=== PATIENT | female | born 1975 | race Caucasian/White ===

== ENCOUNTER 2016-07-04 14:13 | Inpatient (IN) | payer BC ==
[~2016-07-04] VITALS: Ht 157.5 cm; Wt 88.0 kg
[2016-07-04 08:00] VITALS: BP 134/79
--- NOTE | 2016-07-04 14:15 | NUR ---
BIB RA FROM CLINIC FOR CHEST PAIN, PATIENT HAS CHEST PAIN FOR A FEW DAYS, GETTING WORSE, SHE STATES IT IS RADIATING TO LEFT ARM, PATIENT IS VERBALLY RESPONSIVE, A/O X4, HAS CARDIAC HISTORY, PLACED ON MONITOR, EKG COMPLETED, MD AT BEDSIDE UPON ARRIVAL, WILL CONTINUE TO MONITOR CLOSELY.
[2016-07-04] MEDS ORDERED: ASPIRIN 325 MG TABLET ONE (14:41)
[2016-07-04] MEDS ORDERED: NITROGLYCERIN 0.4 MG/TAB BOTTLE ONE (14:44)
[2016-07-04] MEDS ORDERED: ONDANSETRON HCL/PF 4 MG/2 ML VIAL ONE (14:45)
[2016-07-04] MEDS ORDERED: IV NS 0.9% 1,000 ML ONE (14:53)
[2016-07-04] MEDS ORDERED: IV SET PRIMARY 1 EA INFUS.SET MC ONE (14:53)
[2016-07-04 14:55] LABS: BASOPHILS # (AUTO) 0.1 /CMM (0.0-0.2); BASOPHILS % (AUTO) 0.8 % (0.0-2.0); EOSINOPHILS # (AUTO) 0.1 /CMM (0.0-0.7); EOSINOPHILS % (AUTO) 1.3 % (0.0-6.0); HEMATOCRIT 45 % (33-45); HEMOGLOBIN 14.6 g/dL (11.5-14.8); LYMPHOCYTES # (AUTO) 1.9 /CMM (0.8-4.8); LYMPHOCYTES % (AUTO) 22.4 % (20.0-44.0); MEAN CORPUSCULAR HEMOGLOBIN 30 PG (26.0-33.0); MEAN CORPUSCULAR HGB CONC 32 g/dl (31.0-36.0); MEAN CORPUSCULAR VOLUME 93 fL (82-100); MONOCYTES # (AUTO) 0.4 /CMM (0.1-1.30); MONOCYTES % (AUTO) 4.9 % (2.0-12.0); NEUTROPHILS % (AUTO) 70.6 % (43.0-81.0); PLATELET COUNT (AUTO) 229 /CMM (150-450); RDW COEFFICIENT OF VARIATION 11.7 (11.5-15.0); WHITE BLOOD COUNT (AUTO) 8.5 K/uL (4.3-11.0)
[2016-07-04] MEDS ORDERED: ONDANSETRON HCL/PF 4 MG/2 ML VIAL IV ONE (15:00)
[2016-07-04] MEDS ORDERED: IV NS 0.9% 1,000 ML BAG IV ONE (15:00)
[2016-07-04] MEDS ORDERED: ASPIRIN 325 MG TABLET PO ONE (15:00)
[2016-07-04 15:06] LABS: CARBON DIOXIDE 28 mmol/L (21-32); CHLORIDE 106 mmol/L (98-107); CREATININE 1.1 mg/dL (0.6-1.3); GLUCOSE 84 mg/dL (74-106); POTASSIUM 4.1 mmol/L (3.5-5.1); SODIUM SERUM 141 mmol/L (136-145); UREA NITROGEN, BLOOD 19 mg/dL (7-18)
[2016-07-04 15:09] LABS: INR 1.05 (0.87-1.13); PROTHROMBIN TIME 10.9 SECS (9.5-12.7)
[2016-07-04 15:15] LABS: TROPONIN I < 0.017 ng/mL (0.00-0.056)
[2016-07-04 15:17] LABS: APPEARANCE,URINE Cloudy (CLEAR); BLOOD, URINE Negative Ery/uL (NEGATIVE); COLOR,URINE Yellow (YELLOW); KETONES,URINE 40 (NEGATIVE); LEUKOCYTE ESTERASE ,URINE Trace (NEGATIVE); NITRITE, URINE Negative (NEGATIVE); PROTEIN,URINE 30 mg/dl (NEGATIVE); UGLUCOSE Negative (NEGATIVE)
[2016-07-04 15:19] LABS: BILIRUBIN,URINE SMALL (NEGATIVE)
[2016-07-04] MEDS ORDERED: LEVO1CAP3 PO (15:23)
[2016-07-04] MEDS ORDERED: ONDA8TAB9 PO (15:23)
[2016-07-04] MEDS ORDERED: IPRA3AMP IH (15:23)
[2016-07-04] MEDS ORDERED: FERR-58 PO (15:23)
[2016-07-04] MEDS ORDERED: SUCR1TAB26 PO (15:23)
[2016-07-04] MEDS ORDERED: DILT60CA PO (15:23)
[2016-07-04] MEDS ORDERED: PANT40TA2 PO (15:23)
[2016-07-04] MEDS ORDERED: SIME80TA15 PO (15:23)
[2016-07-04] MEDS ORDERED: FLUT1DIS5 IH (15:23)
[2016-07-04] MEDS ORDERED: ACID1TAB12 PO (15:23)
[2016-07-04] MEDS ORDERED: BUPR-51 PO (15:23)
[2016-07-04] MEDS ORDERED: ALBU8.5H2 IH (15:23)
[2016-07-04] MEDS ORDERED: DICY10CA59 PO (15:23)
[2016-07-04] MEDS ORDERED: POLY17PO4 PO (15:24)
--- NOTE | 2016-07-04 15:25 | NUR ---
CALLED NURSING SUP. FOR TELE BED
[2016-07-04 15:31] LABS: RBC,URINE 0-2 /HPF (0-2)
[2016-07-04 15:32] LABS: BACTERIA,URINE 1+ /HPF (None Seen); SQUAMOUS EPITHELIAL CELL,UR Many /HPF (None Seen); WBC,URINE 0-3 /HPF (0-3)
[2016-07-04 16:11] LABS: MAGNESIUM 2.2 mg/dL (1.8-2.4); PHOSPHORUS 3.2 mg/dL (2.5-4.9)
[2016-07-04] MEDS ORDERED: MORPHINE SULFATE INJ 4 MG/ML DISP.SYRIN ONE (16:16)
--- NOTE | 2016-07-04 16:16 | NUR ---
REPORT GIVEN TO ANNAMARIE HOUSTON
[2016-07-04] MEDS ORDERED: MORPHINE SULFATE INJ 2 MG/ML DISP.SYRIN IV ONE (16:30)
[2016-07-04] MEDS ORDERED: NITROGLYCERIN 0.4 MG/TAB BOTTLE SL ONE (16:30)
[2016-07-04] MEDS ORDERED: IV NS 0.9% 250 ML IV ONE (16:44)
[2016-07-04] MEDS ORDERED: IOHEXOL-350 100 ML VIAL IV ONE (16:44)
[2016-07-04] MEDS ORDERED: diphenhydrAMINE HCL 50 MG/ML VIAL ONE (16:54)
[2016-07-04] MEDS ORDERED: methylPREDNISolone SOD SUCC 125 MG/2ML VIAL ONE (16:54)
[2016-07-04] MEDS ORDERED: diphenhydrAMINE HCL 50 MG/ML VIAL IV ONE (17:00)
[2016-07-04] MEDS ORDERED: methylPREDNISolone SOD SUCC 125 MG/2ML VIAL IV ONE (17:00)
--- NOTE | 2016-07-04 17:35 | NUR ---
PATIENT WAS TAKEN TO RADIOLOGY FOR CTA, DR. JOY WAS AWARE OF PATIENT'S ALLERGIES TO CONTRAST, PATIENT WAS GIVEN MEDICATION PROPHILACTICALLY, PATIENT AGREED TO PROCEDURE KNOWING RISKS
--- NOTE | 2016-07-04 17:36 | NUR ---
PT. ALLERGY TO CONTRAST (IODINE), DR. JOY IS AWARE, PRE MEDICATE HER WITH BENADRYL AROUND 1700. ABOUT TO DO A CTA DISSECTION (1729).
--- NOTE | 2016-07-04 18:41 | NUR ---
REPORT GIVEN BY TENA HOUSTON TO THE FLOOR - 112 BED ONE TO THE FLOOR NURSE
--- NOTE | 2016-07-04 18:53 | NUR ---
TEL RN ,patient received to room 111-2 awake and alert oriented x4 resp unlabored no sob noted Dx of chest pain troponin<0.017 telemetry shows SR plan of care and safety discussed and verbalized understanding patient encouraged use of call light to make all needs known will continue to assess and evaluate will endorsed to incoming nurse re; above call light with in reach
--- NOTE | 2016-07-04 19:30 | NUR ---
RN NOTE RECEIVED PT IN NO ACUTE DISTRESS IN BED. PT IS A/O X 4 AND ABLE TO MAKE NEEDS KNOWN. PT IS ON RA AND TOLERATING WELL. PT C/O SOB AND CHEST PAIN. PT PLACED ON 2LPM O2 VIA NC AND TOLERATING WELL WITH O2 SAT @ 100%. AWAITING ADMISSION ORDERS FROM ADMITTING MD. PT HAS LAC 20G THAT IS CLEAN DRY INTACT AND PATENT WITH SALINE LOCK. BED IN LOW LOCK POSITION WITH RIALS UP X 2. CALL LIGHT WITHIN REACH AND ALL SAFETY MEASURES ENSURED AND CARRIED OUT. WILL CONTINUE TO MONITOR PT.
[2016-07-04 20:00] VITALS: BP 134/79
[2016-07-04] MEDS ORDERED: ZOLPIDEM TARTRATE 5 MG TABLET PO PRN (21:00)
[2016-07-04] MEDS ORDERED: MAG HYDROX/AL HYDROX/SIMETH 30 ML UDC PO PRN (21:00)
[2016-07-04] MEDS ORDERED: HYDROCODONE/APAP 5/325MG 1 EACH TABLET PO PRN (21:00)
[2016-07-04] MEDS ORDERED: MAGNESIUM HYDROXIDE 30 ML UDC PO PRN (21:00)
[2016-07-04] MEDS: ACETAMINOPHEN 325 MG TABLET PO PRN (21:24)
[2016-07-04] MEDS: ONDANSETRON HCL/PF 4 MG/2 ML VIAL IVP PRN (21:24)
[2016-07-05] VITALS: BP 100/67
[2016-07-05] MEDS ORDERED: ALBUTEROL SULFATE 8 GM HFA.AER.AD IH PRN (02:30)
[2016-07-05] MEDS ORDERED: ENOXAPARIN SODIUM 40 MG/0.4 ML DISP.SYRIN SQ SCH (02:30)
[2016-07-05] MEDS ORDERED: DICYCLOMINE HCL 10 MG CAPSULE PO PRN (02:30)
[2016-07-05] MEDS ORDERED: ENOXAPARIN SODIUM 40 MG/0.4 ML DISP.SYRIN SQ ONE (03:13)
[2016-07-05] MEDS ORDERED: MORPHINE SULFATE INJ 2 MG/ML DISP.SYRIN ONE (03:13)
[2016-07-05 03:16] LABS: HEMATOCRIT 40 % (33-45); HEMOGLOBIN 13.8 g/dL (11.5-14.8); LYMPHOCYTES # (AUTO) 0.9 /CMM (0.8-4.8); LYMPHOCYTES % (AUTO) 12.8 % (20.0-44.0); MEAN CORPUSCULAR HEMOGLOBIN 32 PG (26.0-33.0); MEAN CORPUSCULAR HGB CONC 34 g/dl (31.0-36.0); MEAN CORPUSCULAR VOLUME 93 fL (82-100); MONOCYTES # (AUTO) 0.1 /CMM (0.1-1.30); MONOCYTES % (AUTO) 0.8 % (2.0-12.0); NEUTROPHILS # (AUTO) 5.8 /CMM (1.8-8.9); NEUTROPHILS % (AUTO) 86.4 % (43.0-81.0); PLATELET COUNT (AUTO) 193 /CMM (150-450); RDW COEFFICIENT OF VARIATION 12.7 (11.5-15.0); RED BLOOD CELL COUNT(AUTO) 4.32 MIL/uL (4.0-5.2); WHITE BLOOD COUNT (AUTO) 6.7 K/uL (4.3-11.0)
[2016-07-05] MEDS: MORPHINE SULFATE INJ 2 MG/ML DISP.SYRIN IV PRN ×4 (03:21→22:34)
[2016-07-05] MEDS: ONDANSETRON HCL/PF 4 MG/2 ML VIAL IVP PRN ×3 (03:22→18:41)
[2016-07-05 03:31] LABS: CALCIUM, SERUM 8.3 mg/dL (8.5-10.1); CREATININE 0.9 mg/dL (0.6-1.3); MAGNESIUM 2.3 mg/dL (1.8-2.4); POTASSIUM 4.4 mmol/L (3.5-5.1)
[2016-07-05 04:00] VITALS: BP 95/61
--- NOTE | 2016-07-05 06:35 | NUR ---
RN CLOSING NOTE PT REMAINS IN NO ACUTE DISTRESS IN BED. PT DID NOT HAVE ANY SIGNIFICANT CHANGE IN CONDITION DURING SHIFT. ALL NEEDS MET ALL ORDERS CARRIED OUT. WILL ENDORSE CARE TO AM RN FOR CONTINUITY OF CARE.
[2016-07-05] MEDS ORDERED: PANTOPRAZOLE 40 MG TABLET.DR PO SCH ×2 (07:30)
[2016-07-05 08:00] VITALS: BP 107/71
[2016-07-05] MEDS ORDERED: LIDOCAINE VISCOUS 2% UD 15 ML UDC MM PRN (08:00)
[2016-07-05] MEDS ORDERED: MAG HYDROX/AL HYDROX/SIMETH 30 ML UDC PO PRN (08:00)
[2016-07-05] MEDS ORDERED: SUCRALFATE 1 G TABLET PO SCH (09:00)
[2016-07-05] MEDS ORDERED: [UNRECOGNIZED DRUG - OTHER] PO SCH (09:00)
[2016-07-05] MEDS ORDERED: ASPIRIN EC 325 MG TABLET.DR PO SCH (09:00)
[2016-07-05] MEDS ORDERED: LEVOMEFOLATE PO SCH (09:00)
[2016-07-05] MEDS: BOOST PLUS FOOD-VANILLA 237 ML BOX PO SCH ×4 (09:00→16:02)
[2016-07-05] MEDS ORDERED: ALGAL OIL PO SCH (09:00)
[2016-07-05] MEDS: POLYETHYLENE GLYCOL 3350 17 GM POWD.PACK PO SCH (11:04)
[2016-07-05] MEDS: FLUTICASONE/SALMETEROL 1 DISK IH SCH ×2 (11:05→16:02)
[2016-07-05] MEDS: BUPROPION XL 150 MG TAB.ER.24 PO SCH (11:05)
[2016-07-05] MEDS: FERROUS SULFATE (325 MG) 325 MG/TAB TABLET PO SCH ×2 (11:05→16:02)
[2016-07-05] MEDS: SIMETHICONE 80 MG TAB.CHEW PO SCH ×3 (11:06→16:02)
[2016-07-05] MEDS: ACIDOPHILUS/BULGARICUS 1 EACH TAB.CHEW PO SCH (11:06)
[2016-07-05] MEDS: DILTIAZEM HCL 30 MG TABLET PO SCH ×2 (11:08→21:19)
--- NOTE | 2016-07-05 11:21 | NUR ---
POST OP AND eMAR NOTE PAST DUE MEDICATION UNKNOWN ADMINISTRATION CLEARED FOR UP TO DATE SCHEDULING. BOOST GIVEN AT THIS TIME FOR AM ADMIN. ALL MEDS GIVEN LATE BECAUSE PATIENT WAS IN OR. PATIENT IS STABLE AT TIME OF RETURN VSS, LOC WNL, 07/20 PAIN
[2016-07-05 12:00] VITALS: BP 111/69
--- NOTE | 2016-07-05 12:35 | NUR ---
10/10 CHEST PAIN, ADMIN MORPHINE AND ZOFRAN FOR S/E OF NAUSEA WITH NARCOTICS
[2016-07-05] MEDS ORDERED: IPRATROPIUM NEB FS 0.5 MG/2.5 ML AMPUL.NEB NEB PRN (13:30)
[2016-07-05] MEDS ORDERED: ALBUTEROL FS 2.5 MG/3 ML VIAL.NEB NEB PRN (13:30)
--- NOTE | 2016-07-05 14:00 | NUR ---
non admin simethicone because too close to last admin time
[2016-07-05 16:00] VITALS: BP 127/56
[2016-07-05] MEDS: SUCRALFATE 1 G TABLET PO SCH (16:02)
[2016-07-05] MEDS ORDERED: LEVOTHYROXINE SODIUM 175 MCG TABLET PO SCH (16:30)
--- NOTE | 2016-07-05 19:12 | NUR ---
end of shift left patient in stable condition, breathing and LOC wnl. after morphine and zofran administered symptoms relieved. patient consuming minimal amount of PO intake as she is having upper GI pain. consuming boost supplement. no emesis. LAC IV remains patent, no complications at insertion site. education provided regarding symptoms, diagnosis and management, patient verbalizes understanding is is active/ compliant with care plan. patient reports no BM in 9 days and stated this is a common occurrence, informed VACCINE SPECIALIST Moe and endorsed to night nurse. receiving scheduled miralax. denied additional laxatives this shift. call light reach
--- NOTE | 2016-07-05 19:15 | NUR ---
RN INITIAL NOTES PATIENT IN BED, RESTING COMFORTABLY. PATIENT VERBALIZES RELIEF FROM PAIN WITH PAIN MEDICATION GIVEN BY AM NURSE AT 1840. PATIENT COMPLAINING OF 4/10 CHEST PAIN, NON RADIATING AT THIS TIME, NO SOB AND NO DIZZINESS AND NO N/V COMPLAINED. ON ROOM AIR. SR ON TELE, HR OF 63. L AC G20, FLUSHED AND PATENT, NO SIGNS OF INFILTRATION. PATIENT WITH SOFT ABDOMEN, NON TENDER, OFFERED MOM FOR ENDORSED CONSTIPATION OF 9 DAYS, PER PATIENT THE MOST DAYS WITH NO BM SHE HAS HAD WAS 12 DAYS, PATIENT WITH NO ABDOMINAL DISCOMFORT. PATIENT'S NEEDS ANTICIPATED AND MET. SAFETY AND COMFORT ENSURED. BED IN LOW AND LOCKED POSITION. CALL LIGHT IN REACH. WILL MONITOR.
[2016-07-05 20:00] VITALS: BP 110/73
[2016-07-05] MEDS: PANTOPRAZOLE 40 MG TABLET.DR PO SCH (21:19)
--- NOTE | 2016-07-05 21:30 | NUR ---
RN NOTES PATIENT VERBALIZES BLADDER PRESSURE AND DISCOMFORT. FURTHER ASSESSED, NOTED PATIENT WITH MINIMAL BLADDER DISTENTION, TENDER WITH PALPATION AND C/O PAIN. PATIENT ALSO VERBALIZES THAT SHE HAS NOT URINATED FOR ALMOST 24HOURS; AND WHEN SHE DID EARLIER IN THE AFTERNOON, IT WAS ONLY A SMALL AMOUNT. BLADDER SCAN DONE, SCANNER SHOWING >650CC IN BLADDER. PATIENT VERBALIZES SHE DOES NOT FEEL THE NEED TO URINATE AT THIS TIME, ASSISTED WITH USE OF BRP, NO OUTPUT. PAGED EPIC, SPOKE WITH SENIOR OPERATIONS MANAGER DREA MAXWELL, ORDER FOR STRAIGHT CATH OBTAINED PER PATIENT'S CONSENT, AND CLOSE MONITORING. PATIENT MADE AWARE, VERBALIZED UNDERSTANDING; OBSERVED PATIENT TO BE ADAMANT OF THE CATHETER INSERTION. PROVIDED PATIENT WITH HEALTH EDUCATION AND REASSURANCE, PATIENT TO THINK ABOUT IT, WILL FURTHER ATTEMPT VOIDING PER SELF AT THIS TIME, WILL MONITOR.
[2016-07-05] MEDS ORDERED: DILTIAZEM HCL 60 MG PO SCH (22:00)
[2016-07-06] VITALS (7 sets, daily range): BP systolic 101–112; BP diastolic 46–71
--- NOTE | 2016-07-06 00:30 | NUR ---
RN NOTES FOLLOWED UP WITH PATIENT'S CONDITION. PATIENT ENCOURAGED AND ASSISTED NEEDED WITH ADLS AND USE OF BRP FOR VOIDING. PATIENT ATTEMPTED VOIDING PER SELF X2, WITH NO URINARY OUTPUT. REOFFERED STRAIGHT CATH ORDERED, PATIENT COMPLIED. TOTAL OF 900CC URINARY OUTPUT DRAINED. PATIENT TOLERATED PROCEDURE WELL, COMPLAINED OF BLADDER RELIEF, SAFETY AND COMFORT PROVIDED AND ENSURED. WILL CONTINUE TO MONITOR.
[2016-07-06] MEDS: ACETAMINOPHEN 325 MG TABLET PO PRN (01:17)
[2016-07-06] MEDS: ONDANSETRON HCL/PF 4 MG/2 ML VIAL IVP PRN ×3 (01:17→22:26)
--- NOTE | 2016-07-06 02:00 | NUR ---
RN NOTES PATIENT IN BED, AWAKE. PATIENT VERBALIZES MINIMAL RELIEF FROM DISCOMFORT. NO CHEST PAIN, NO DIZZINESS. PATIENT STILL COMPLAINING OF ABDOMINAL DISCOMFORT AND BLADDER DISCOMFORT, MINIMAL AT THIS TIME. PATIENT REPOSITIONED FOR COMFORT, SAFETY AND COMFORT ENSURED, ENVIRONMENTAL CHANGES MADE APPROPRIATE. CALL LIGHT IN REACH. WILL MONITOR.
[2016-07-06] MEDS: MORPHINE SULFATE INJ 2 MG/ML DISP.SYRIN IV PRN ×3 (04:58→22:27)
--- NOTE | 2016-07-06 06:44 | NUR ---
RN CLOSING NOTES PATIENT IN BED, SLEEPING COMFORTABLY. PATIENT WITH NO RESPIRATORY/CARDIAC DISTRESS. PATIENT IS SB ON MONITOR, HR OF 55. SAFETY AND COMFORT ENSURED. BED IN LOW AND LOCKED POSITION. CALL LIGHT IN REACH. PATIENT REPORTS THAT SHE HAD AGAIN ATTEMPTED TO VOID WITH NO SUCCESS. WILL ENDORSE ACCORDINGLY FOR MONITORING AND CONTINUITY OF CARE.
[2016-07-06 07:28] LABS: BASOPHILS % (AUTO) 0.5 % (0.0-2.0); EOSINOPHILS # (AUTO) 0.1 /CMM (0.0-0.7); EOSINOPHILS % (AUTO) 1.8 % (0.0-6.0); HEMATOCRIT 40 % (33-45); HEMOGLOBIN 13.5 g/dL (11.5-14.8); LYMPHOCYTES # (AUTO) 2.7 /CMM (0.8-4.8); LYMPHOCYTES % (AUTO) 38.1 % (20.0-44.0); MEAN CORPUSCULAR HEMOGLOBIN 32 PG (26.0-33.0); MEAN CORPUSCULAR HGB CONC 34 g/dl (31.0-36.0); MEAN CORPUSCULAR VOLUME 94 fL (82-100); MONOCYTES # (AUTO) 0.4 /CMM (0.1-1.30); MONOCYTES % (AUTO) 5.6 % (2.0-12.0); NEUTROPHILS # (AUTO) 3.8 /CMM (1.8-8.9); PLATELET COUNT (AUTO) 176 /CMM (150-450); RDW COEFFICIENT OF VARIATION 12.8 (11.5-15.0); RED BLOOD CELL COUNT(AUTO) 4.23 MIL/uL (4.0-5.2)
[2016-07-06 07:59] LABS: THYROID STIMULATING HORMONE 4.012 uIU/mL (0.358-3.74)
[2016-07-06 08:11] LABS: CALCIUM, SERUM 8.2 mg/dL (8.5-10.1)
[2016-07-06] MEDS: FLUTICASONE/SALMETEROL 1 DISK IH SCH ×2 (08:46→17:48)
[2016-07-06] MEDS: BOOST PLUS FOOD-VANILLA 237 ML BOX PO SCH ×3 (08:47→17:47)
[2016-07-06] MEDS: SUCRALFATE 1 G TABLET PO SCH ×2 (08:48→17:47)
[2016-07-06] MEDS: POLYETHYLENE GLYCOL 3350 17 GM POWD.PACK PO SCH (08:48)
[2016-07-06] MEDS: FERROUS SULFATE (325 MG) 325 MG/TAB TABLET PO SCH ×2 (08:48→17:47)
[2016-07-06] MEDS: LEVOTHYROXINE SODIUM 50 MCG TABLET PO SCH (08:48)
[2016-07-06] MEDS: PANTOPRAZOLE 40 MG TABLET.DR PO SCH ×2 (08:48→21:27)
[2016-07-06] MEDS: ACIDOPHILUS/BULGARICUS 1 EACH TAB.CHEW PO SCH (08:48)
[2016-07-06] MEDS: BUPROPION XL 150 MG TAB.ER.24 PO SCH (08:49)
[2016-07-06] MEDS: SIMETHICONE 80 MG TAB.CHEW PO SCH ×3 (08:49→17:47)
[2016-07-06] MEDS: DILTIAZEM HCL 30 MG TABLET PO SCH ×2 (08:50→21:00)
[2016-07-06] MEDS: ENOXAPARIN SODIUM 40 MG/0.4 ML DISP.SYRIN SQ SCH (08:56)
[2016-07-06] MEDS ORDERED: TEMAZEPAM 15 MG CAPSULE PO PRN (11:30)
--- NOTE | 2016-07-06 15:31 | NUR ---
ASKED THE PT. IF SHE MAKING URINE,STATED NO.BLADDER SCAN DONE 636 ML. PT. DISCUSSED ABOUT THE DURAN CATH INSERTION AND SAID YES BUT WHEN WE ARE ABOUT TO INSERT SHE REFUSED INSPITE OF EXPLANATIONS GIVEN TO HER. SHE STATED, LATER ON.EXPLAINED TO HER AGAIN BUT REFUSED. CHARGE NURSE AWARE. TOLD TO THE NURSE THAT I WILL EXPLAIN TO HER AGAIN.
--- NOTE | 2016-07-06 18:00 | NUR ---
EOSS PT. OFFERED TO INSERT DURAN AGAIN,STATED SHE IS STILL TRYING.EXPLAINED TO HER THE CONSEQUENCES OF NOT PUTTING THE DURAN,STILL THE PT. REFUSED AT THIS TIME.WILL CONTINUE TO MONITOR. CARED FOR.WILL ENDORSE.
--- NOTE | 2016-07-06 22:40 | NUR ---
RN NOTES: DURAN CATHETER IS INSERTED BY CHARGE NURSE ORDERED.
[2016-07-07] VITALS: BP 118/64
[2016-07-07 04:00] VITALS: BP 96/42
[2016-07-07] MEDS: ACETAMINOPHEN 325 MG TABLET PO PRN (04:45)
[2016-07-07] MEDS: ONDANSETRON HCL/PF 4 MG/2 ML VIAL IVP PRN (07:42)
[2016-07-07] MEDS: MORPHINE SULFATE INJ 2 MG/ML DISP.SYRIN IV PRN (07:45)
--- NOTE | 2016-07-07 07:54 | NUR ---
BATCH PLANT OPERATOR NOTE PATIENT IN BED, ALL NEEDS ATTENDED, C\O CHEST PAIN AND STOMACH PAIN ,MORPHINE 2 MFG AND AND C\O NAUSEA ZOFRAN GIVEN, ON RA NO SOB NOTED , ON TELE MONITOR SB 51 , WITH F\C TO GRAVITY WIT YELLOW COLOR URINE , LT AC HL INTACT, NO S\S INFECTION NOTED ,BED IN LOWEST AND LOCKHEED POSITION , PLAN OF CARE DISCUSSED WITH PATIENT , WILL CONT TO MONITOR CLOSELY , CALL LIGHT WITHIN REACH
[2016-07-07 08:00] VITALS: BP 114/70
[2016-07-07] MEDS: BOOST PLUS FOOD-VANILLA 237 ML BOX PO SCH ×3 (08:49→16:52)
[2016-07-07] MEDS: FERROUS SULFATE (325 MG) 325 MG/TAB TABLET PO SCH ×2 (08:50→16:51)
[2016-07-07] MEDS: SUCRALFATE 1 G TABLET PO SCH ×2 (08:50→16:52)
[2016-07-07] MEDS: SIMETHICONE 80 MG TAB.CHEW PO SCH ×3 (08:51→16:51)
[2016-07-07] MEDS: ACIDOPHILUS/BULGARICUS 1 EACH TAB.CHEW PO SCH (08:51)
[2016-07-07] MEDS: PANTOPRAZOLE 40 MG TABLET.DR PO SCH (08:51)
[2016-07-07] MEDS: BUPROPION XL 150 MG TAB.ER.24 PO SCH (08:52)
[2016-07-07] MEDS: POLYETHYLENE GLYCOL 3350 17 GM POWD.PACK PO SCH (08:53)
[2016-07-07] MEDS: LEVOTHYROXINE SODIUM 50 MCG TABLET PO SCH (08:53)
[2016-07-07] MEDS: ENOXAPARIN SODIUM 40 MG/0.4 ML DISP.SYRIN SQ SCH (08:56)
[2016-07-07] MEDS: DILTIAZEM HCL 30 MG TABLET PO SCH ×2 (08:57→12:46)
[2016-07-07] MEDS: FLUTICASONE/SALMETEROL 1 DISK IH SCH ×2 (08:58→16:52)
--- NOTE | 2016-07-07 09:00 | NUR ---
CARDIOLOGIST NOTE AFTER MORPHINE GIVEN BP 88/45 HR 52 , WILL MONITOR CLOSELY HOLD CARDIZEM AT THIS TIME ,
--- NOTE | 2016-07-07 10:34 | NUR ---
METAL FILER NOTE SPOKE WITH DR JONES PROJECTION PRINTER NOTIFIED THAT AFTER MORPHINE BP 88/45 AND HR 50-51 STATED OK TO GIVE CARDIZEM TODAY WILL F]U
[2016-07-07 12:00] VITALS: BP 120/63
--- NOTE | 2016-07-07 12:30 | NUR ---
MARK HOUSTON NOTE SEEN BY EDD HOUSTON JOB ESTIMATOR WITH ORDER TO D\C HOME , ORDER CARRIED OUT
--- NOTE | 2016-07-07 14:00 | NUR ---
FLORAL DESIGNER NOTE OK TO REMOVE DURAN CATH ORDERED
[2016-07-07 16:00] VITALS: BP 109/64
--- NOTE | 2016-07-07 16:00 | NUR ---
BASIN CLEANER NOTE PATIENT HAS TRAUBE TO URINAE AFTER DURAN WAS REMOVED , BLADER SCAN DONE ,LESS THE 50 ML OF URINE NOTED , CALLED TO STORM RN COMPRESSED GAS EQUIPMENT MECHANIC NOTIFIED ABOUT THIS ALSO INFORMED THAT YESTERDAY PATIENT HAD DIFFICULT TO B VOID, STATED OK TO REINSERT DURAN WITH LEG BAG AND OK TO DISCHARGE, FOLLOW UP WITH PRIMARY CARE DOCTOR TO CHECK DURAN
--- NOTE | 2016-07-07 17:30 | NUR ---
TELE RNN NOTE\ PATENT REFUSED TO INSERT DURAN, STATED THAT SHE WILL BE OK . BLADDER SCAN DONE AGAIN 200 ML NOTED OF URINE, INSTRUCTED PATENT TO FOLLOW WITH PRIMARY CARE DOCTOR ABOUT URINAL RETENTION ALSO INSTRUCTED IF WITHIN 6-8 HOUR DID NOT URINATED GO TO ER FOR CHECK FOR BLADDER RETENTION, STATED THAT UNDERSTOOD ,EXPLAINED THAT IMPORTANCE TO INSERT DURAN AT THIS TIME BUT STILL REFUSED
--- NOTE | 2016-07-07 17:34 | NUR ---
SOA ENGINEER NOTE D\C INSTRUCTION GIVEN TO PATENT , RX GIVEN, EXPLAINED HOW TO TAKE AND POSSIBLE SIDE EFFECTS , ALSO TELE REMOVED AND HL REMOVED , INSTRUCTED TO FOLLOW UP WITH PRIMARY CARE DOCTOR AND IF NOT URINATED GO TO ER TO RECHECK, WENT HOME WITH STABLE CONDITION ACCOMPANIED WITH FRIEND AND NURSING STUFF, WENT TO LOBBY BY WALKING, REFUSED TO SIT ON CHAIR
== END 2016-07-07 17:50 | disposition home or self-care (01) | DRG 384 ==
LOC: ER 14:16 → TELE1 15:00
PROVIDERS: ADMIT Family Medicine; ATTEND Family Medicine
PROC: 0DB68ZX Excision of Stomach, Via Natural or Artificial Opening Endoscopic, Diagnostic (ICD-10-PCS; principal; 2016-07-05 09:00)
DX: K25.9 Gastric ulcer, unspecified as acute or chronic, without hemorrhage or perforation (principal); F50.2 Bulimia nervosa; M94.0 Chondrocostal junction syndrome [Tietze]; K21.9 Gastro-esophageal reflux disease without esophagitis; E03.9 Hypothyroidism, unspecified; E66.01 Morbid (severe) obesity due to excess calories; J45.909 Unspecified asthma, uncomplicated; Z86.79 Personal history of other diseases of the circulatory system; Z90.49 Acquired absence of other specified parts of digestive tract; Z68.35 Body mass index [BMI] 35.0-35.9, adult; K20.9 Esophagitis, unspecified; K22.4 Dyskinesia of esophagus; I35.9 Nonrheumatic aortic valve disorder, unspecified; K29.70 Gastritis, unspecified, without bleeding
CPT/HCPCS: 36415; 71010-TC; 80048-TC; 80061-TC; 81000-TC; 82040-TC; 83735-TC; 84100-TC; 84443-TC; 84484-TC; 84703-TC; 85025-TC; 85730-TC; 87081-TC; 87086-TC; 88305-TC; 88313-TC; 88342; 93307-TC; A4606; J1200; J1650; J2270; J2405; J2704; J2930; J7030; J7050; Q9967; Z7610